=== PATIENT | male | born 1970 | race Caucasian/White ===

== ENCOUNTER 2016-09-20 21:21 | Emergency (ER) | payer OTHER, MEDICAID ==
[2016-09-20] MEDS ORDERED: HYDROmorphone 1 MG/ML SYRINGE IM STA (23:07)
[2016-09-20] MEDS ORDERED: HYDROmorphone 1 MG/ML SYRINGE ONE (23:12)
[2016-09-20] MEDS ORDERED: LIDOCAINE VISCOUS 2% 15 ML UDC MM ONE (23:13)
[2016-09-20] MEDS ORDERED: ACETAMINOPHEN 500 MG TABLET PO ONE (23:13)
[2016-09-20] MEDS ORDERED: FAMOTIDINE 20 MG TABLET ONE (23:14)
== END 2016-09-21 00:15 | disposition home or self-care (01) ==
DX: M54.5 Low back pain (principal); M54.6 Pain in thoracic spine; R10.2 Pelvic and perineal pain; W18.30XA Fall on same level, unspecified, initial encounter; Y92.480 Sidewalk as the place of occurrence of the external cause; I10 Essential (primary) hypertension; E11.42 Type 2 diabetes mellitus with diabetic polyneuropathy; G89.29 Other chronic pain; Z87.81 Personal history of (healed) traumatic fracture; Z79.4 Long term (current) use of insulin; Z79.01 Long term (current) use of anticoagulants
CPT/HCPCS: 72072; 72100; 72125; 72192; 96372; 99283; 99284; A9270; J1170

== ENCOUNTER 2016-12-09 23:45 | Outpatient (CLI) | payer OTHER, MEDICAID | END 2016-12-09 23:46 | disposition critical access hospital (66) | DX: R45.851 Suicidal ideations (principal); R73.09 Other abnormal glucose | CPT/HCPCS: A0425; A0429 ==

== ENCOUNTER 2016-12-10 00:07 | Emergency (ER) | payer OTHER, MEDICAID ==
[2016-12-10] MEDS ORDERED: MORPHINE ER 15 MG TABLET PO STA (08:52)
[2016-12-10] MEDS ORDERED: MORPHINE ER 15 MG TABLET PO ONE (08:59)
[2016-12-10] MEDS ORDERED: oxyCODONE 5 MG TABLET PO STA ×2 (11:18→15:20)
[2016-12-10] MEDS ORDERED: oxyCODONE 5 MG TABLET ONE ×2 (11:19→15:26)
[2016-12-10] MEDS ORDERED: INSULIN NPH HUMAN 100 UNIT/1 ML 10 ML MDV SUBQ STA (12:49)
[2016-12-10] MEDS ORDERED: INSULIN NPH HUMAN 100 UNIT/1 ML 10 ML MDV SUBQ ONE (13:04)
== END 2016-12-10 17:57 | disposition home or self-care (01) ==
DX: R45.851 Suicidal ideations (principal); F10.129 Alcohol abuse with intoxication, unspecified; E11.42 Type 2 diabetes mellitus with diabetic polyneuropathy; Z79.4 Long term (current) use of insulin; I10 Essential (primary) hypertension; M54.9 Dorsalgia, unspecified; G89.29 Other chronic pain; I48.92 Unspecified atrial flutter; Z79.01 Long term (current) use of anticoagulants
CPT/HCPCS: 36415; 80053; 80306; 80307; 80320; 80329; 81003; 83690; 85025; 99284; 99285; A9270; J1815

== ENCOUNTER 2017-09-07 08:00 | Outpatient (CLI) | payer MEDICAID, OTHER | END 2017-09-07 08:01 | disposition home or self-care (01) | LOC: LAB.R 08:00 | PROVIDERS: ATTEND Surgery | DX: L02.411 Cutaneous abscess of right axilla (principal) | CPT/HCPCS: 87070; 87205 ==

== ENCOUNTER 2017-11-07 11:50 | Observation (INO) | payer OTHER ==
[2017-11-07] MEDS ORDERED: NITROGLYCERIN SL 0.4 MG TABLET SL STA (12:07)
[2017-11-07] MEDS ORDERED: MORPHINE 2 MG/ML SYRINGE IVP STA ×3 (12:07→13:46)
--- NOTE | 2017-11-07 12:11 | ED Physician Documentation ---
History of Present Illness - Stated complaint Stated Complaint: CHEST PAIN - Chief complaint Chief Complaint: Cardiac - Additonal information Additional information: hx from pt 46 male hx HTN DM overweight smoker with a fhx of CAD has had int CP for 5 days today at 1030 much more severe and persistent with nausea diaphoresis and soa describes pain as sharp and radiating to his back no leg swelling hx ASD repair age 9 Review of Systems Constitutional: reports: Sweats. denies: Fever Cardiac: reports: Chest pain / pressure Respiratory: reports: Dyspnea. denies: Cough GI: reports: Nausea. denies: Abdominal Pain Musculoskeletal: reports: Back pain. denies: Extremity pain, Extremity swelling Neurologic: denies: Generalized weakness Immunocompromised: denies: Immunocompromised PD PAST MEDICAL HISTORY - Past Medical History Cardiovascular: Hypertension, High cholesterol, Atrial flutter Respiratory: Pneumonia, Sleep apnea, CPAP use Neuro: Headache/migraine, Peripheral neuropathy Endocrine/Autoimmune: Type 2 diabetes GI: GERD : None HEENT: None Psych: Depression, Post traumatic stress disorder Musculoskeletal: Chronic back pain Derm: None - Past Surgical History Ortho: Knee replacement, Shoulder arthroplasty, Arthroscopic surgery Cardiovascular: Other HEENT: Tonsil/Adenoidectomy - Present Medications Home Medications: Ambulatory Orders Medication Instructions Recorded Confirmed Furosemide 40 mg PO DAILY 08/13/14 11/07/17 Insulin NPH Human Isophane 45 units SUBQ BID 08/13/14 11/07/17 [Humulin N] Lisinopril 20 mg PO BID 08/13/14 11/07/17 Potassium Chloride 20 meq PO DAILY 08/13/14 11/07/17 Ropinirole HCl 0.5 mg PO QPM 08/13/14 11/07/17 Warfarin [Coumadin] 7.5 mg PO DAILY 08/13/14 11/07/17 DULoxetine [Cymbalta] 60 mg PO DAILY 12/10/16 11/07/17 oxyCODONE [Roxicodone] 40 mg PO Q4H PRN 12/10/16 11/07/17 Pregabalin [Lyrica] 150 mg PO BID 11/07/17 11/07/17 - Allergies Allergies/Adverse Reactions: Allergies Allergy/AdvReac Type Severity Reaction Status Date / Time prochlorperazine edisylate * Allergy Unknown Verified 12/25/15 20:03 [From Compazine] prochlorperazine maleate * Allergy Unknown Verified 12/25/15 20:03 [From Compazine] promethazine HCl * Allergy Unknown Verified 12/25/15 20:03 [From Phenergan] hydromorphone [From Dilaudid] AdvReac Hallucinati Verified 11/07/17 15:34 ons - Social History Does the pt smoke?: No Smoking Status: Never smoker Does the pt drink ETOH?: Yes Does the pt have substance abuse?: No - Immunizations Immunizations are current?: Yes - POLST Patient has POLST: No PD ED PE NORMAL - Vitals Vital signs reviewed: Yes (HTN tachy) - Neck Neck: Supple, no meningeal sign - Cardiac Cardiac: RRR - Respiratory Respiratory: No respiratory distress, Clear bilaterally - Abdomen Abdomen: Soft - Derm Derm: Normal color - Extremities Extremities: No edema, No calf tenderness / cord - Neuro Neuro: Alert and oriented X 3 Results - Vitals Vitals: Vital Signs - 24 hr 11/07/17 11/07/17 11:55 12:22 Temperature 37.0 C 37.1 C Heart Rate 108 H 120 H Respiratory 22 12 Rate Blood Pressure 157/88 H 124/85 H O2 Saturation 95 94 Oxygen O2 Source Room air - EKG (time done) 1151 Rate: Rate (enter#) (109) Rhythm: Other (sinus tach vs 2:1 flutter) Ischemia: Other (Q in III, coveed ST segments across precordial leads) Compare to prior EKG: Other (very similar to 2016 EKG) 1211 Rate: Rate (enter#) (115) Rhythm: Sinus tachycardia (vs a flutter) Lucas: Normal Ischemia: Other (similar to EKG # 1 which was similar to EKG from prior visit - Q in III and some ST segement abn diffusley across precordial leads - seems improved a bit from EKG #1) - Labs Labs: Laboratory Tests 11/07/17 11/07/17 11/07/17 12:00 12:00 12:00 WBC 10.6 RBC 5.39 Hgb 16.4 Hct 48.1 MCV 89.4 MCH 30.5 MCHC 34.1 RDW 14.1 Plt Count 237 MPV 9.4 Neut # 7.5 H Lymph # 2.3 Bradford # 0.6 Eos # 0.1 Baso # 0.1 Absolute Nucleated RBC 0.01 Nucleated RBC % 0.1 Sodium 133 L Potassium 4.2 Chloride 97 L Carbon Dioxide 26 Anion Gap 10.0 BUN 13 Creatinine 1.1 Estimated GFR (MDRD) 71 L Glucose 317 H Calcium 9.2 Troponin I < 0.04 - Rads (name of study) CTA chest A/P Radiology: See rad report (no aneursym, no dissection, no PE, renal cyst) PD MEDICAL DECISION MAKING - ED course ED course: 46 male with numerous cardiac risk factors to ED with what sounds like escalating angina for 5 days and then 2+ hr severe pain today rad to back so concern for dissection - CTA neg given asa nitro morphine EKG abnormal but similar to EKG for prior def needs serial CE, echo, stress paged hospitalist at 1310 Departure - Departure Disposition: ED Place in Observation Clinical Impression: Chest pain Qualifiers: Chest pain type: unspecified Qualified Code(s): R07.9 - Chest pain, unspecified
[2017-11-07 12:12] LABS: BASOPHILS # (AUTO) 0.1 10^3/uL (0.0-0.1); BASOPHILS % (AUTO) 0.6 %; EOSINOPHILS # (AUTO) 0.1 10^3/uL (0.0-0.7); EOSINOPHILS % (AUTO) 1.3 %; HGB - HEMOGLOBIN 16.4 g/dL (14.0-18.0); LYMPHOCYTES # (AUTO) 2.3 10^3/uL (1.5-3.5); LYMPHOCYTES % (AUTO) 21.5 %; MEAN CORPUSCULAR HEMOGLOBIN 30.5 pg (27.0-31.0); MEAN CORPUSCULAR HGB CONC 34.1 g/dL (32.0-36.0); MEAN CORPUSCULAR VOLUME 89.4 fL (80.0-94.0); MEAN PLATELET VOLUME 9.4 fL (7.4-11.4); MONOCYTES # (AUTO) 0.6 10^3/uL (0.0-1.0); MONOCYTES % (AUTO) 5.9 %; NEUTROPHILS # (AUTO) 7.5 10^3/uL (1.5-6.6); NEUTROPHILS % (AUTO) 70.7 %; PLT - PLATELET COUNT 237 10^3/uL (130-450); RED BLOOD COUNT 5.39 10^6/uL (4.70-6.10); RED CELL DISTRIBUTION WIDTH 14.1 % (12.0-15.0); WHITE BLOOD COUNT 10.6 x10^3/uL (4.8-10.8)
[2017-11-07 12:15] LABS: CALCIUM 9.2 mg/dL (8.5-10.3); CREATININE 1.1 mg/dL (0.6-1.2)
[2017-11-07] MEDS ORDERED: IOPAMIDOL-300 100 ML VIAL ONE (12:48)
[2017-11-07] MEDS ORDERED: IOPAMIDOL-300 100 ML VIAL IVP ONE (13:08)
[2017-11-07] MEDS ORDERED: ASPIRIN CHEW 81 MG TABLET PO STA (13:12)
[2017-11-07] MEDS ORDERED: SODIUM CHLORIDE FLUSH 0.9% 10 ML SYRINGE IVP PRN (13:28)
[2017-11-07] MEDS ORDERED: HYDROmorphone 1 MG/ML CARPUJECT IVP PRN (13:28)
[2017-11-07] MEDS ORDERED: TEMAZEPAM 15 MG CAPSULE PO PRN (13:28)
[2017-11-07] MEDS ORDERED: ONDANSETRON 4 MG/2 ML VIAL IVP PRN (13:28)
[2017-11-07] MEDS ORDERED: ACETAMINOPHEN 325 MG TABLET PO PRN (13:28)
[2017-11-07] MEDS ORDERED: NITROGLYCERIN 2% PASTE TOP STA (13:46)
[2017-11-07] MEDS ORDERED: GABAPENTIN 300 MG CAPSULE PO SCH (14:00)
--- NOTE | 2017-11-07 14:02 | CT Report ---
EXAM: CT ANGIOGRAM CHEST EXAM DATE: 11/07/2017 01:06 PM. CLINICAL HISTORY: Sharp chest pain rad to back concern for dissection. COMPARISONS: 02/28/2016. TECHNIQUE: Routine axial helical CT angiographic imaging was performed through the chest, IV Contrast: 100 cc I sovue-300. Reconstructions: Coronal, sagittal, and 3D MIP reconstructions of the aorta. In accordance with CT protocol optimization, one or more of the following dose reduction techniques w ere utilized for this exam: automated exposure control, adjustment of mA and/or KV based on patient s ize, or use of iterative reconstructive technique. FINDINGS: Vascular Structures: Normal. No aneurysm, dissection, or significant atherosclerotic disease of the t horacic aorta, the visualized pulmonary, vascular structures are also within normal limits. Lungs/Pleura: No consolidation, nodules, or edema. No effusions or pneumothorax. Mediastinum: Poststernotomy. Top normal heart size. No mediastinal adenopathy Bones: Old bilateral rib fractures Other: None. IMPRESSION: Normal chest CT angiogram. No aneurysm or dissection. No pulmonary emboli [facility] Referring Provider Line: [phone] SITE ID: [id number]
--- NOTE | 2017-11-07 14:02 | CT Report ---
EXAM: CT ANGIOGRAM ABDOMEN AND PELVIS WITH CONTRAST EXAM DATE: 11/07/2017 01:06 PM. CLINICAL HISTORY: Sharp CP rad to back. COMPARISONS: 09/20/2016 and 02/28/2016. TECHNIQUE: Routine helical CT angiogram imaging was performed through the abdomen and pelvis in the a rterial phase. IV contrast: ISOVUE 300 100mL. Enteric contrast: No. Reconstructions: Coronal, sagitt al, and 3D MIP reconstructions. In accordance with CT protocol optimization, one or more of the following dose reduction techniques w ere utilized for this exam: automated exposure control, adjustment of mA and/or KV based on patient s ize, or use of iterative reconstructive technique. FINDINGS: Vasculature: no aneurysm, dissection, of the abdominal aorta and iliac arteries. The visualized me senteric and solid organ vascular structures are also within normal limits. Atherosclerotic changes o f the aorta and iliacs Lung Bases: Normal. Abdominal Solid Organs: Left renal cyst 6.8 cm. The liver, spleen, pancreas, adrenal glands, gallblad katina and kidneys are otherwise normal in size and demonstrate no masses or abnormal enhancement. Peritoneal Cavity: Fat-containing umbilical hernia No free fluid, free air, or acute inflammatory pro cess. Pelvic Organs: Normal. The bladder and visualized pelvic organs are within normal limits. Bones: Old bilateral pelvic fractures with plates across the bilateral pubis and bilateral SI screws Other: None. IMPRESSION: 1. No aneurysm or dissection. 2. Left renal cyst 6.8 cm. 3. Other incidental findings as above [facility] Referring Provider Line: [phone] SITE ID: [id number]
[2017-11-07] MEDS ORDERED: oxyCODONE 5 MG TABLET PO PRN (14:33)
[2017-11-07] MEDS ORDERED: MORPHINE 2 MG/ML SYRINGE IVP PRN (15:22)
[2017-11-07] MEDS: ENOXAPARIN 40 MG/0.4 ML SYRINGE SUBQ SCH (16:28)
[2017-11-07] MEDS: MORPHINE 2 MG/ML SYRINGE IVP PRN ×3 (16:28→21:09)
[2017-11-07] MEDS ORDERED: PERFLUTREN LIPID MICROSPHERES 1.65 MG/1.5 ML VIAL IVP ONE (18:34)
[2017-11-07] MEDS: oxyCODONE 5 MG TABLET PO PRN (19:08)
[2017-11-07] MEDS: oxyCODONE 30 MG TABLET PO PRN (19:09)
[2017-11-07] MEDS: INSULIN ASPART 300 UNIT/3 ML PEN SUBQ SCH ×2 (19:09→21:14)
[2017-11-07] MEDS: SODIUM CHLORIDE FLUSH 0.9% 10 ML SYRINGE IVP SCH (19:10)
[2017-11-07] MEDS ORDERED: rOPINIRole 0.25 MG TABLET PO SCH (21:00)
--- NOTE | 2017-11-07 21:12 | XRAY Preliminary Report ---
Exam: XR RIBS 2 VIEW LT IMPRESSION: No rib fracture. [facility] SITE ID: [id number]
[2017-11-07] MEDS: PREGABALIN 25 MG CAPSULE PO SCH (21:13)
--- NOTE | 2017-11-07 21:13 | XRAY Report ---
EXAM: LEFT RIB RADIOGRAPHY EXAM DATE: 11/07/2017 07:45 PM. CLINICAL HISTORY: S/P fall 1-2 wks ago, eval for fracture. COMPARISON: None. TECHNIQUE: 4 views. FINDINGS: Bones: No acute fracture or bony destruction. Lungs: Negative for pneumothorax. No focal consolidative process. Mediastinum: Previous median sternotomy noted. Other: None. IMPRESSION: No rib fracture. [facility] Referring Provider Line: [phone] SITE ID: [id number]
[2017-11-07] MEDS: PREGABALIN 100 MG CAPSULE PO SCH (21:14)
[2017-11-07] MEDS: INSULIN NPH HUMAN 100 UNIT/1 ML 10 ML MDV SUBQ SCH (21:15)
[2017-11-08] MEDS: oxyCODONE 5 MG TABLET PO PRN ×2 (00:20→05:58)
[2017-11-08] MEDS: SODIUM CHLORIDE FLUSH 0.9% 10 ML SYRINGE IVP SCH ×2 (00:20→08:18)
[2017-11-08] MEDS: oxyCODONE 30 MG TABLET PO PRN ×2 (00:20→05:58)
[2017-11-08 06:00] LABS: HB2 TOTAL 15.8 g/dL; HEMOGLOBIN A1C 1.63 g/dL; HEMOGLOBIN A1C % 11.6 % (4.6-6.2)
[2017-11-08 07:51] LABS: INR 2.3 (0.8-1.2); PT - PROTHROMBIN TIME 25.1 secs (9.9-12.6)
[2017-11-08 07:59] VITALS: BP 116/74
[2017-11-08] MEDS ORDERED: INSULIN ASPART 300 UNIT/3 ML PEN SUBQ SCH (08:00)
[2017-11-08] MEDS ORDERED: POTASSIUM CHLORIDE 20 MEQ TABLET PO SCH (08:00)
[2017-11-08] MEDS ORDERED: IBUPROFEN 800 MG TABLET PO SCH (08:00)
[2017-11-08] MEDS: ENOXAPARIN 40 MG/0.4 ML SYRINGE SUBQ SCH (08:16)
[2017-11-08] MEDS: PREGABALIN 100 MG CAPSULE PO SCH (08:17)
[2017-11-08] MEDS: PREGABALIN 25 MG CAPSULE PO SCH (08:17)
[2017-11-08] MEDS: INSULIN NPH HUMAN 100 UNIT/1 ML 10 ML MDV SUBQ SCH (08:32)
--- NOTE | 2017-11-08 08:55 | Discharge Plan ---
Discharge Plan Disposition: 01 Home, Self Care Condition: Stable Prescriptions: Ibuprofen [Motrin] 800 mg PO TID #8 tablet Diet: Diabetic Activity Restrictions: Activity as Tolerated Shower Restrictions: No Driving Restrictions: No Instruction Topics: Costochond Additional Instructions or Follow Up instructions: Resume all your medications. Take the new Ibuorofen prescription for 3 days with meals. See your doctor if the chest pain persists for medication refills and possibly for more testing. No Smoking: If you smoke, Please STOP! Call for help. Follow-up with: Isaiah Borges MD [Primary Care Provider] -
[2017-11-08] MEDS ORDERED: POLYETHYLENE GLYCOL 3350 17 GM PACKET PO SCH (09:00)
[2017-11-08] MEDS ORDERED: LISINOPRIL 20 MG TABLET PO SCH (09:00)
[2017-11-08] MEDS ORDERED: DULoxetine 30 MG CAPSULE PO SCH (09:00)
[2017-11-08] MEDS ORDERED: FAMOTIDINE 20 MG TABLET PO SCH (09:00)
[2017-11-08] MEDS ORDERED: FUROSEMIDE 40 MG TABLET PO SCH (09:00)
[2017-11-08] MEDS ORDERED: WARFARIN 2.5 MG TABLET PO SCH (09:00)
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
== END 2017-11-08 09:50 | disposition home or self-care (01) ==
LOC: ED 11:50 → OBS 13:28
PROVIDERS: ADMIT Internal Medicine; ATTEND Internal Medicine
DX: R07.89 Other chest pain (principal); E11.65 Type 2 diabetes mellitus with hyperglycemia; E11.42 Type 2 diabetes mellitus with diabetic polyneuropathy; E66.01 Morbid (severe) obesity due to excess calories; Z68.41 Body mass index [BMI] 40.0-44.9, adult; I48.91 Unspecified atrial fibrillation; I48.92 Unspecified atrial flutter; Z79.01 Long term (current) use of anticoagulants; G47.30 Sleep apnea, unspecified; I27.81 Cor pulmonale (chronic); G89.21 Chronic pain due to trauma; M54.9 Dorsalgia, unspecified; F32.9 Major depressive disorder, single episode, unspecified; Z79.4 Long term (current) use of insulin; Z79.891 Long term (current) use of opiate analgesic; Z79.899 Other long term (current) drug therapy; Z91.81 History of falling; Z91.5 Personal history of self-harm; Z87.74 Personal history of (corrected) congenital malformations of heart and circulatory system; Z87.828 Personal history of other (healed) physical injury and trauma; Z82.49 Family history of ischemic heart disease and other diseases of the circulatory system
CPT/HCPCS: 36415; 71100; 71275; 74174; 80048; 83036; 84484; 85025; 85610; 85651; 93005; 93306; 96372; 96374; 96375; 96376; 99284; A9270; G0378; J1650; J1815; J2270; Q9957; Q9967; 99283